=== PATIENT | female | born 1970 | race Caucasian/White ===

== ENCOUNTER 2022-04-09 07:55 | Day surgery (SDC) | payer OTHER ==
[~2022-04-09] VITALS: Ht 165.1 cm; Wt 102.3 kg
[~2022-04-09 07:55] MED LIST: LEVOTHYROXINE125 MC1 PO; LOSARTAN POTASS25 MG PO; MULTI VITAMIN1 EACH PO; OSTERA TABLET1 EACH PO; PROBIOTIC1 EAC1 PO
--- NOTE | 2022-04-09 09:55 | NUR ---
04/09/22 0955 Sheree Farooq 0945 PATIENT ARRIVES TO PACU RESTING WITH EYES CLOSED. ASKS/ANSWERS QUESTIONS APPROPRIATELY. RESP EVEN AND UNLABORED, NC AT 6 LITERS, DECRAESED TO 4 LITERS. DENIES PAIN OR NAUSEA. PASSING GAS. 0953 PATIENT AWAKE OFF/ON, CONTINUES TO DENY PAIN OR NAUSEA. TAKING SIPS OF WATER. RESP EVEN AND UNLABORED, OXYGEN OFF, ROOM AIR SATS 100%.
--- NOTE | 2022-04-09 14:12 | OR ---
[facility] [address], [place] [address] Signed DATE OF OPERATION: 04/09/2022 SURGEON: Lanie Maradiaga MD PREOPERATIVE DIAGNOSIS: Screening. POSTOPERATIVE DIAGNOSIS: Minimal sigmoid diverticulosis. PROCEDURE: Colonoscopy without biopsy. ESTIMATED BLOOD LOSS: None. INDICATIONS: Jose is a 52-year-old obese female, asked to see me for her initial screening colonoscopy. She has no lower GI complaints. There is no family history of colon cancer or polyps. In the office, I had given her a pamphlet on colonoscopy. She understands the nature of the test. There is risk including, but not limited to gas bloating, crampy abdominal pain, bleeding, perforation requiring surgery, and missed diagnosis. We also reviewed the need for monitored anesthesia care given her body mass index and a very round full face with a heavy chest and abdomen along with her sleep apnea. She had expressed understanding and wished to proceed. PROCEDURE NOTE: Jose was taken into our endoscopy suite and placed in the left lateral decubitus position. She was given monitored anesthesia care with propofol per our nurse magazine supervisor. A digital rectal exam was performed and this was unremarkable. The adult colonoscope was introduced and advanced under direct visualization of the camera into the cecum itself without difficulty. Her prep was quite excellent. We could easily see the appendiceal orifice and the ileocecal valve. The scope was slowly withdrawn. We took several pictures as the scope was withdrawn. It looks like she probably has a few small diverticula in the sigmoid colon. The rectum was unremarkable. Upon retroflexion of the scope, there is no additional pathology noted above the anal canal. After this, the gas was suctioned out and the colonoscope removed. Jose tolerated the procedure quite well. RECOMMENDATIONS: Electronically Signed By: LANIE MARADAIGA MD 04/09/22 1412 PATIENT NAME: JOSE SMITH OPERATIVE REPORT DATE OF : 72 REPORT #: [id number] PHYSICIAN: LANIE MARADIAGA MD PCP: LOIS ANGUIANO PA-C REPORT IS CONFIDENTIAL AND NOT TO BE RELEASED WITHOUT AUTHORIZATION [address] [address] Signed Jose can follow up in 10 years for repeat screening colonoscopy. Lanie Maradiaga MD ALB/MODL /[id number] cc: LYNETTE Armenta MD Copies: LOIS ANGUIANO PA-C, ANDREW L MD ~ Electronically Signed By: LANIE MARADIAGA MD 04/09/22 1412 PATIENT NAME: JOSE SMITH OPERATIVE REPORT DATE OF : 72 REPORT #: [id number] PHYSICIAN: LANIE MARADIAGA MD PCP: LOIS ANGUIANO PA-C REPORT IS CONFIDENTIAL AND NOT TO BE RELEASED WITHOUT AUTHORIZATION
== END 2022-04-09 10:15 | disposition home or self-care (01) ==
LOC: OPS 07:55 → DS 07:55 → OPS 09:15 → DS 09:15 → OPS 10:15
PROVIDERS: ATTEND Colon & Rectal Surgery
PROC: 0DJD8ZZ Inspection of Lower Intestinal Tract, Via Natural or Artificial Opening Endoscopic (ICD-10-PCS; principal; 2022-04-09 09:15)
DX: Z12.11 Encounter for screening for malignant neoplasm of colon (principal); K57.30 Diverticulosis of large intestine without perforation or abscess without bleeding; E03.9 Hypothyroidism, unspecified; I10 Essential (primary) hypertension; G47.33 Obstructive sleep apnea (adult) (pediatric)
CPT/HCPCS: J2704; J7121